=== PATIENT | male | born 1950 | race Caucasian/White ===

== ENCOUNTER 2017-04-29 15:39 | Emergency (ER) | payer OTHER ==
[2017-04-29 15:58] VITALS: BP 133/86; PULSE 88; TEMP 98.7; BMI 22.0
[2017-04-29] MEDS ORDERED: NAPROXEN 500 MG TABLET (FP) PO ONE (16:52)
[2017-04-29] MEDS ORDERED: NAPROXEN 500 MG TABLET (FP) ONE (16:56)
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
== END 2017-04-29 17:05 | disposition home or self-care (01) ==
LOC: FER 15:39
DX: S13.4XXA Sprain of ligaments of cervical spine, initial encounter (principal); V43.52XA Car driver injured in collision with other type car in traffic accident, initial encounter; Y93.89 Activity, other specified; Y92.410 Unspecified street and highway as the place of occurrence of the external cause; E78.5 Hyperlipidemia, unspecified
CPT/HCPCS: 99282-25

== ENCOUNTER 2018-06-07 12:30 | Emergency (ER) | payer OTHER ==
[2018-06-07 12:38] VITALS: BP 145/96; TEMP 98.7; BMI 22.8
[2018-06-07] MEDS ORDERED: ACETAMINOPHEN WITH CODEINE 300MG/30MG TABLET PO ONE (13:00)
[2018-06-07] MEDS ORDERED: ACETAMINOPHEN 500 MG TABLET (FP) PO ONE (13:01)
[2018-06-07] MEDS ORDERED: ACETAMINOPHEN 500 MG TABLET (FP) ONE (13:01)
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
[2018-06-07] MEDS ORDERED: DIPHTH,PERTUSS(ACELL),TET 0.5 ML DISP.SYRIN IM ONE (14:30)
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
[2018-06-07 15:41] VITALS: PULSE 77
== END 2018-06-07 16:09 | disposition home or self-care (01) ==
LOC: FER 12:30
PROC: 3E0234Z Introduction of Serum, Toxoid and Vaccine into Muscle, Percutaneous Approach (ICD-10-PCS; principal; 2018-06-07)
DX: M54.2 Cervicalgia (principal); W10.9XXA Fall (on) (from) unspecified stairs and steps, initial encounter; Y93.89 Activity, other specified; Y92.008 Other place in unspecified non-institutional (private) residence as the place of occurrence of the external cause; G89.29 Other chronic pain; E11.9 Type 2 diabetes mellitus without complications; Z85.46 Personal history of malignant neoplasm of prostate; J45.998 Other asthma
CPT/HCPCS: 70450-TC; 70480-TC; 72125-TC; 90715; 99284-25